=== PATIENT | female | born 1955 | race Caucasian/White ===

== ENCOUNTER 2017-04-12 09:41 | Emergency (ER) | payer BC ==
[2017-04-12] MEDS ORDERED: Sodium Chloride 0.9% 1,000 ML IV ONE (10:13)
[2017-04-12] MEDS ORDERED: Ondansetron 4 MG/2 ML SDV IVPUSH ONE (10:20)
[2017-04-12] MEDS ORDERED: Sodium Chloride 0.9% 10 ML Syringe FLUSH PRN (10:39)
[2017-04-12 10:59] LABS: CHLORIDE,CL 104 mmol/L (98-107); SODIUM,NA 140 mmol/L (136-145)
[2017-04-12] MEDS ORDERED: Iopamidol 612 MG/ML 100 ML Bottle IVPUSH ONE (11:25)
--- NOTE | 2017-04-12 11:38 | EDM.PDOC ---
ED HPI GENERAL MEDICAL PROBLEM - General Chief Complaint: Gastrointestinal Problem Stated Complaint: Nausea Time Seen by Provider: 04/12/17 09:42 Source of Information: Reports: Patient, RN, RN Notes Reviewed History Limitations: Reports: No Limitations - History of Present Illness INITIAL COMMENTS - FREE TEXT/NARRATIVE: Patient presents the emergency room at [facility] complaining of worsening nausea since her left hip surgery on April 06, 2017. The patient is taking narcotics for left hip pain but she states she has been tapering those off over the past couple of days. Her appetite has been poor. The patient states that she has had vomiting on and off for the past 4 days. The patient has right lower quadrant pain. The patient denies any diarrhea or blood in stool. The patient states she did have a normal bowel movement this morning. The patient states she feels somewhat weak. She has a history of chronic anemia. She admits she has not been taking her oral iron lately. Onset: Gradual Location: Reports: Abdomen Quality: Reports: Dull, Pressure Severity: Mild Improves with: Reports: Rest Worsens with: Reports: Other (palpation), Movement Associated Symptoms: Reports: Nausea/Vomiting Treatments RELOCATION COMMISSIONER: Reports: Other (see below) (none) Left Hip Pain Score (Numeric/FACES): 2 Right Lower Abdomen Pain Score (Numeric/FACES): 4 - Related Data Allergies Allergy/AdvReac Type Severity Reaction Status Date / Time lisinopril AdvReac Other Verified 04/12/17 11:49 Home Meds: Home Meds Albuterol [Ventolin HFA] 1 inh PO Q4H PRN 04/12/17 [History] Aspirin [Halfprin] 81 mg PO DAILY 04/12/17 [History] Canagliflozin [Invokana] 100 mg PO DAILY 04/12/17 [History] Carvedilol 12.5 mg PO BID 04/12/17 [History] Estradiol [Estrace 0.01% Vaginal Crm] 1 applic VAG ASDIRECTED 04/12/17 [History] Fluticasone Propionate [Flovent HFA 110 MCG] 1 inh PO BID 04/12/17 [History] Furosemide [Lasix] 40 mg PO DAILY PRN 04/12/17 [History] Insulin Aspart [Novolog Flexpen] 0 dose SQ ASDIRECTED 04/12/17 [History] Insulin Glargine,Hum.Rec.Anlog [Toujeo Solostar] 32 units SQ BEDTIME 04/12/17 [ History] Minoxidil [Rogaine] 0 dose TOP ASDIRECTED 04/12/17 [History] Montelukast [Singulair] 10 mg PO BEDTIME 04/12/17 [History] Naproxen Sodium 220 - 440 mg PO BID PRN 04/12/17 [History] Polyvinyl Alcohol [Liquitears] 0 drop EYEBOTH ASDIRECTED 04/12/17 [History] Spironolactone [Aldactone] 25 mg PO DAILY 04/12/17 [History] atorvaSTATin [Lipitor] 10 mg PO BEDTIME 04/12/17 [History] tiZANidine [Zanaflex] 4 mg PO TID PRN 04/12/17 [History] ED ROS GENERAL - Review of Systems Review Of Systems: See Below Constitutional: Reports: Weakness, Decreased Appetite. Denies: Fever, Chills Respiratory: Denies: Shortness of Breath, Cough Cardiovascular: Denies: Chest Pain, Palpitations GI/Abdominal: Reports: Abdominal Pain, Nausea, Vomiting. Denies: Black Stool, Bloody Stool, Diarrhea Skin: Reports: No Symptoms Neurological: Reports: No Symptoms. Denies: Dizziness, Headache ED EXAM, GI/ABD - Physical Exam Exam: See Below Exam Limited By: No Limitations General Appearance: Alert, No Apparent Distress Respiratory/Chest: No Respiratory Distress, Lungs Clear, Normal Breath Sounds Cardiovascular: Normal Peripheral Pulses, Regular Rate, Rhythm GI/Abdominal Exam: Soft, Tender (RLQ), Abnormal Bowel Sounds (Hypoactive) Neurological: Alert, Oriented Skin Exam: Warm, Dry, Intact, Normal Color, No Rash Course - Vital Signs Last Recorded V/S: Last Vital Signs Temp 35.8 C 04/12/17 10:00 Pulse 77 04/12/17 10:00 Resp 16 04/12/17 10:00 BP 160/69 H 04/12/17 10:00 Pulse Ox - Orders/Labs/Meds Orders: Active Orders 24 hr Category Date Time Status Abdomen Pelvis w Cont [CT] Stat Exams 04/12/17 10:40 Taken Sodium Chloride 0.9% [Saline Flush] Med 04/12/17 10:39 Active 10 ml FLUSH ASDIRECTED PRN Peripheral IV Insertion Adult [OM.PC] Routine Oth 04/12/17 10:39 Ordered Medication Orders Sodium Chloride (Saline Flush) 10 ml FLUSH ASDIRECTED PRN PRN Reason: Keep Vein Open Labs: Laboratory Tests 04/12/17 04/12/17 04/12/17 Range/Units 10:29 10:29 10:29 WBC 9.7 (4.0-10.0) x10^3/uL RBC 3.60 L (4.00-5.50) x10^6/uL Hgb 11.5 L (12.0-16.0) g/dL Hct 33.4 (33.0-47.0) % MCV 92.8 (78.0-93.0) fL MCH 31.9 (26.0-32.0) pg MCHC 34.4 (32.0-36.0) g/dL RDW Coeff of [place] 12.7 (10.0-15.0) % Plt Count 241 (130-400) x10^3/uL Add Manual Diff Yes Neutrophils % (Manual) 80 (50-80) % Band Neutrophils % 5 (0-6) % Lymphocytes % (Manual) 8 L (25-50) % Monocytes % (Manual) 5 (2-11) % Eosinophils % (Manual) 2 (0-4) % Hypersegmented Neuts Rare H Vacuolated Monocytes 1+ slight H Toxic Granulation 1+ slight H Platelet Estimate Adequate Giant Platelets Rare H Macrocytosis Rare Spherocytes Rare Ovalocytes Rare Helmet Cells Rare Sodium 140 (136-145) mmol/L Potassium 4.3 (3.5-5.1) mmol/L Chloride 104 (98-107) mmol/L Carbon Dioxide 25 (21-32) mmol/L BUN 17 (7-18) mg/dL Creatinine 0.8 (0.55-1.02) mg/dL Est Cr Clr Drug Dosing TNP Estimated GFR (MDRD) > 60 Glucose 162 H (74-106) mg/dL Lactic Acid 1.2 (0.4-2.0) mmol/L Calcium 8.5 (8.5-10.1) mg/dL Corrected Calcium 9.22 (8.5-10.1) mg/dL Total Bilirubin 1.6 H (0.2-1.0) mg/dL AST 41 H (15-37) U/L ALT 43 (14-59) U/L Alkaline Phosphatase 80 (46-116) U/L C-Reactive Protein 5.9 H (<=0.9) mg/dL Total Protein 6.7 (6.4-8.2) g/dL Albumin 3.1 L (3.4-5.0) g/dL Globulin 3.6 Albumin/Globulin Ratio 0.86 Amylase 24 L (25-115) U/L Lipase 117 (73-393) U/L Meds: Medications Generic Name Dose Route Start Last Admin Trade Name Freq PRN Reason Stop Dose Admin Sodium Chloride 10 ml 04/12/17 10:39 Saline Flush FLUSH ASDIRECTED PRN Keep Vein Open Discontinued Medications Generic Name Dose Route Start Last Admin Trade Name Freq PRN Reason Stop Dose Admin Sodium Chloride 1,000 mls @ 999 mls/hr 04/12/17 10:13 04/12/17 10:13 Normal Saline IV 04/12/17 11:13 999 mls/hr ONETIME ONE Administration Iopamidol 100 ml 04/12/17 11:25 04/12/17 11:27 Isovue-300 (61%) IVPUSH 04/12/17 11:26 100 ml ONETIME ONE Administration Ondansetron HCl 4 mg 04/12/17 10:20 04/12/17 10:28 Zofran IVPUSH 04/12/17 10:21 4 mg ONETIME ONE Administration - Radiology Interpretation Free Text/Narrative:: CT Abd/Pelvis: Discussed with Dr. Chuy Vu. No acute pathology or etiology for patients current symptoms. Has some gas/fluid in the left hip region, which is to be expected given 6 days out from surgery. See scanned report in EMR CT Results Date: 04/12/17 CT Results Time: 12:07 Departure - Departure Time of Disposition: 12:08 Disposition: Home, Self-Care 01 Condition: Good Clinical Impression: Nausea & vomiting Qualifiers: Vomiting type: unspecified Vomiting Intractability: non-intractable Qualified Code(s): R11.2 - Nausea with vomiting, unspecified Abdominal pain Qualifiers: Abdominal location: right lower quadrant Qualified Code(s): R10.31 - Right lower quadrant pain - Discharge Information Instructions: Nausea and Vomiting, Adult, Abdominal Pain, Adult, [id number] Referrals: Vidal,Yulissa Latasha, DO [Primary Care Provider] - Forms: ED Department Discharge Additional Instructions: 1. Stay well hydrated and rest 2. Continue with your same medications at home 3. Take nausea medication as needed 4. Labs and CT scan looked good, no emergency found 5. See your Primary as symptoms warrant 6. Call us with any questions/concerns - Problem List Review Problem List Initiated/Reviewed/Updated: Yes - My Orders Last 24 Hours: My Active Orders 04/12/17 10:39 Sodium Chloride 0.9% [Saline Flush] 10 ml FLUSH ASDIRECTED PRN Peripheral IV Insertion Adult [OM.PC] Routine 04/12/17 10:40 Abdomen Pelvis w Cont [CT] Stat - Assessment/Plan Last 24 Hours: My Active Orders 04/12/17 10:39 Sodium Chloride 0.9% [Saline Flush] 10 ml FLUSH ASDIRECTED PRN Peripheral IV Insertion Adult [OM.PC] Routine 04/12/17 10:40 Abdomen Pelvis w Cont [CT] Stat
== END 2017-04-12 12:25 | disposition home or self-care (01) ==
LOC: VM.ED 09:41
DX: R10.31 Right lower quadrant pain (principal); R11.2 Nausea with vomiting, unspecified; Z88.8 Allergy status to other drugs, medicaments and biological substances; Z79.82 Long term (current) use of aspirin; Z79.899 Other long term (current) drug therapy
CPT/HCPCS: 36415; 74177; 80053; 82150; 83605; 83690; 85025; 86140; 96361; 96374; 99284; J2405; J7030; Q9967

== ENCOUNTER 2019-08-22 06:37 | Day surgery (SDC) | payer BC ==
[2019-08-22] MEDS ORDERED: Lactated Ringers 1,000 ML IV SCH (07:00)
[2019-08-22] MEDS ORDERED: fentaNYL 100 MCG/2 ML SDV ONE (07:59)
[2019-08-22] MEDS ORDERED: Propofol 200 MG/20 ML SDV ONE ×2 (07:59→08:24)
--- NOTE | 2019-08-22 14:05 | OR ---
DATE OF SURGERY: 08/22/2019 REFERRING PROVIDER: Yulissa Drake DO PRE-OPERATIVE DIAGNOSES: 1. Screening colonoscopy. The patient's last colonoscopy was 10 years ago. There is no family history of colon cancer, but there is a family history of colon polyps in sister. 2. The patient does have history of hemorrhoids, which will bleed on occasion. She has been off her aspirin for 1 week. POST-OPERATIVE DIAGNOSES: 1. Five small polyps removed using cold forceps. a. 2 mm polyp at 60 cm. b. 2 mm x2 at 15 cm. c. 4 mm polyp at 10 cm. d. 3 mm rectal polyp. 2. Moderate left-sided diverticulosis. 3. Moderate hemorrhoids with some minimal inflammation. PROCEDURE: Colonoscopy with polypectomy x5 using cold forceps. SURGEON: Conner James M.D. ANESTHESIA: Monitored anesthesia care. BOWEL PREP: Good. Bri is a 63-year-old female who was brought to the endoscopy suite after discussing risks and benefits of the procedure. Informed consent was obtained for conscious sedation and colonoscopy with or without biopsy and/or polypectomy. We also discussed possibility of missed lesions. Pre-procedure exam was unremarkable. IV, oxygen, and monitors were placed. The patient was placed in the left lateral decubitus position. Sedation was administered and a digital rectal exam was performed and remarkable for some moderate external hemorrhoids, not acutely inflamed. Colonoscope was passed. The rectum slowly advanced all the way to the cecum. Cecum was viewed and photographed. The colonoscope was slowly withdrawn and the mucosa was closed observed in a direct circumferential manner. The ascending colon was unremarkable. The transverse colon was remarkable for 2 mm polyp at 60 cm, removed using cold forceps. The descending colon and sigmoid colon revealed moderate diverticulosis. Sigmoid colon did reveal 2 mm polyp x2 at 15 cm and 4 mm polyp at about 10 to 12 cm. These were all removed using cold forceps. Retroflexion was performed and rectal mucosa was remarkable for 3 mm rectal polyp, as well as moderate hemorrhoids with some minimal inflammation. Scope was removed. The patient tolerated the procedure well. The patient was monitored until that baseline status. Discharge instructions were reviewed and the patient was discharged in good condition. COMPLICATIONS: None. TOTAL TIME: 24 minutes. ESTIMATED BLOOD LOSS: 1 to 2 mL. RECOMMENDATIONS/FOLLOW-UP: We will await results of path report to determine ideal followup interval. I will have the patient hold her aspirin for about 3 days to limit any chance of bleeding from polypectomy sites. I would like to kindly thank Yulissa Drake for this referral. DMB: 08/22/2019 09:05:06 MODL: 08/22/2019 13:15:56 /[id number] MTDD
== END 2019-08-22 11:00 | disposition home or self-care (01) ==
LOC: VM.SDS 06:37
PROVIDERS: ATTEND Family Medicine
DX: Z12.11 Encounter for screening for malignant neoplasm of colon (principal); D12.3 Benign neoplasm of transverse colon; K62.1 Rectal polyp; K57.30 Diverticulosis of large intestine without perforation or abscess without bleeding; K64.4 Residual hemorrhoidal skin tags; I11.0 Hypertensive heart disease with heart failure; I50.9 Heart failure, unspecified; J45.909 Unspecified asthma, uncomplicated; K21.9 Gastro-esophageal reflux disease without esophagitis; E78.5 Hyperlipidemia, unspecified; E11.8 Type 2 diabetes mellitus with unspecified complications; E78.1 Pure hyperglyceridemia; M19.90 Unspecified osteoarthritis, unspecified site; J45.20 Mild intermittent asthma, uncomplicated; Z11.59 Encounter for screening for other viral diseases; Z98.890 Other specified postprocedural states; Z79.4 Long term (current) use of insulin; Z83.71 Family history of colonic polyps; Z79.899 Other long term (current) drug therapy; Z79.51 Long term (current) use of inhaled steroids; Z88.8 Allergy status to other drugs, medicaments and biological substances
CPT/HCPCS: 00812; 82962; J2704; J3010; J7120; U0002

== ENCOUNTER 2022-10-17 07:41 | Inpatient (IN) | payer MEDICARE, OTHER ==
[2022-10-17] MEDS ORDERED: Sodium Chloride 0.9% 10 ML Syringe FLUSH PRN (07:48)
[2022-10-17] MEDS ORDERED: Ondansetron 4 MG/2 ML SDV IVPUSH ONE (07:50)
[2022-10-17] MEDS ORDERED: Lactated Ringers 1,000 ML IV ONE ×2 (07:50→09:06)
[2022-10-17 07:56] LABS: HEMATOCRIT 44.8 % (33.0-47.0); HEMOGLOBIN 16.5 g/dL (12.0-16.0); MEAN CORPUSCULAR HEMOGLOBIN 32.2 pg (26.0-32.0); MEAN CORPUSCULAR HGB CONC 36.8 g/dL (32.0-36.0); MEAN CORPUSCULAR VOLUME 87.3 fL (78.0-93.0); PLATELET COUNT,PLT 225 x10^3/uL (130-400); RED BLOOD CELL COUNT 5.13 x10^6/uL (4.00-5.50)
[2022-10-17 08:07] LABS: WHITE BLOOD CELL COUNT,WBC 30.1 x10^3/uL (4.0-10.0)
[2022-10-17 08:15] LABS: BAND PERCENT MAN 5 % (0-6); BASOPHILS ABSOLUTE MAN 0.3 x10^3/uL (0.0-0.2); BASOPHILS PERCENT MAN 1 % (0-1); EOSINOPHILS ABSOLUTE MAN 1.2 x10^3/uL (0.0-0.5); EOSINOPHILS PERCENT MAN 4 % (0-4); GIANT PLATELETS RARE; LYMPHOCYTES ABSOLUTE MAN 3.6 x10^3/uL (1.0-4.8); LYMPHOCYTES PERCENT MAN 6 % (25-50); MONOCYTES ABSOLUTE MAN 0.3 x10^3/uL (0.0-0.8); MONOCYTES PERCENT MAN 1 % (2-11); NEUTROPHILS ABSOLUTE MAN 24.7 x10^3/uL (1.8-7.7); PLATELET COUNT ESTIMATE ADEQUATE; SEG NEUTROPHILS PERCENT MAN 77 % (50-80); VACUOLATED NEUTROPHILS 2+ MODERATE
[2022-10-17 08:16] LABS: ALANINE AMINOTRANSFERASE,ALT 38 U/L (14-59); ALBUMIN 4.3 g/dL (3.4-5.0); ALKALINE PHOSPHATASE 103 U/L (46-116); ASPARTATE AMNIOTRANSFERASE,AST 25 U/L (15-37); BILIRUBIN TOTAL 0.8 mg/dL (0.2-1.0); BLOOD UREA NITROGEN,BUN 26 mg/dL (7-18); CALCIUM 9.5 mg/dL (8.5-10.1); CARBON DIOXIDE,CO2 26 mmol/L (21-32); CHLORIDE,CL 101 mmol/L (98-107); CREATININE 1.2 mg/dL (0.55-1.02); GLUCOSE RANDOM 231 mg/dL (70-99); LIPASE 62 U/L (19-71); MAGNESIUM 1.9 mg/dL (1.8-2.4); POTASSIUM,K 3.4 mmol/L (3.5-5.1); PROTEIN TOTAL,TP 7.6 g/dL (6.4-8.2); SODIUM,NA 142 mmol/L (136-145); STOMATOCYTES RARE; TOXIC GRANULATION 1+ SLIGHT
[2022-10-17 08:19] LABS: ANION GAP 18.4 mmol/L (5-15); ESTIMATED GFR 49 mL/min (>=60)
[2022-10-17 08:23] LABS: INR 0.9 (2.0-3.5); PROTHROMBIN TIME 10.1 SEC (9.5-12.2); PTT,PARTIAL THROMBOPLSTIN TIME 23.4 SEC (23.6-33.6)
[2022-10-17 08:41] LABS: LACTIC ACID 4.8 mmol/L (0.4-2.0)
[2022-10-17] MEDS ORDERED: Iopamidol 612 MG/ML 100 ML Bottle IVPUSH ONE (08:45)
[2022-10-17] MEDS ORDERED: Prochlorperazine 10 MG/2 ML SDV IV ONE (09:06)
[2022-10-17] MEDS ORDERED: Piperacillin/Tazobactam 3.375 GM in Sodium Chloride 0.9% 100 ML IV ONE (10:13)
[2022-10-17] MEDS ORDERED: Ondansetron 4 MG Tab.DIS PO PRN (11:03)
[2022-10-17] MEDS ORDERED: NS + KCl 20mEq/L 1,000 ML IV SCH ×2 (11:15→17:15)
[2022-10-17 11:31] LABS: APPEARANCE,URINE CLEAR (CLEAR); BILIRUBIN,URINE NEGATIVE (NEGATIVE); COLOR,URINE YELLOW (YELLOW); GLUCOSE,URINE >=1000 mg/dL (NEGATIVE); KETONES,URINE TRACE mg/dL (NEGATIVE); LEUKOCYTE ESTERASE,URINE NEGATIVE (NEGATIVE); NITRITE,URINE NEGATIVE (NEGATIVE); OCCULT BLOOD,URINE NEGATIVE (NEGATIVE); PROTEIN,URINE NEGATIVE (NEGATIVE); UROBILINOGEN,URINE 0.2 EU/dL (0.2)
[2022-10-17] MEDS ORDERED: Hypromellose 0.3% Ophth Soln 15 ML Bottle EYEBOTH PRN (11:31)
[2022-10-17] MEDS ORDERED: Albuterol HFA 18 Gm Inhaler INH PRN (11:31)
[2022-10-17] MEDS ORDERED: Ketotifen 0.025% Ophth Soln 5 ML Bottle EYEBOTH PRN (11:31)
[2022-10-17] MEDS ORDERED: Loratadine 10 MG Tab PO PRN (11:31)
[2022-10-17] MEDS: Pantoprazole 40 MG Vial IVPUSH SCH ×2 (11:36→22:37)
[2022-10-17 11:37] LABS: AMPHETAMINES SCREEN, URINE NEGATIVE (NEGATIVE); BARBITURATE SCREEN,URINE NEGATIVE (NEGATIVE); BENZODIAZEPINES SCREEN,URINE NEGATIVE (NEGATIVE); BUPRENORPHINE SCREEN,URINE NEGATIVE (NEGATIVE); COCAINE METABOLITES,URINE NEGATIVE (NEGATIVE); METHADONE SCREEN, URINE NEGATIVE (NEGATIVE); METHAMPHETAMINE SCREEN, URINE NEGATIVE (NEGATIVE); OXYCODONE SCREEN,URINE NEGATIVE (NEGATIVE); PCP SCREEN,URINE NEGATIVE (NEGATIVE); THC SCREEN,URINE 50 NG/ML POSITIVE (NEGATIVE)
[2022-10-17] MEDS ORDERED: INSULIN ASPART 100 UNIT/ML SQ SCH (11:45)
[2022-10-17 12:06] LABS: C-REACTIVE PROTEIN 0.19 mg/dL (<=0.30)
[2022-10-17] MEDS ORDERED: Insulin Lispro 100 Units/ML 3 ML Vial SUBCUT SCH ×2 (13:00→18:00)
[2022-10-17] MEDS: Piperacillin/Tazobactam 3.375 GM in Sodium Chloride 0.9% 100 ML IV SCH (18:24)
[2022-10-17] MEDS ORDERED: Prochlorperazine 10 MG/2 ML SDV IVPUSH PRN (20:06)
[2022-10-17] MEDS ORDERED: Lisinopril 20 MG Tab PO SCH (21:00)
[2022-10-17] MEDS ORDERED: Montelukast 10 MG Tab PO SCH (21:00)
[2022-10-17] MEDS ORDERED: atorvaSTATin 10 MG Tab PO SCH (21:00)
[2022-10-17] MEDS ORDERED: Insulin Glarg,Human.Rec.Analog 100 Unit/ML 10 ML Vial SUBCUT SCH (21:00)
[2022-10-18] MEDS: Piperacillin/Tazobactam 3.375 GM in Sodium Chloride 0.9% 100 ML IV SCH (02:13)
[2022-10-18 06:42] LABS: BASOPHILS PERCENT AUTO 0.2 % (0.2-1.2); EOSINOPHILS PERCENT AUTO 0.2 % (0.0-4.0); HEMATOCRIT 34.6 % (33.0-47.0); HEMOGLOBIN 12.7 g/dL (12.0-16.0); IMMATURE GRAN ABSOLUTE AUTO 0.04 x10^3/uL (0.00-0.07); LYMPHOCYTES ABSOLUTE AUTO 1.7 x10^3/uL (1.0-4.8); MEAN CORPUSCULAR HEMOGLOBIN 32.5 pg (26.0-32.0); MEAN CORPUSCULAR HGB CONC 36.7 g/dL (32.0-36.0); MEAN CORPUSCULAR VOLUME 88.5 fL (78.0-93.0); MONOCYTES ABSOLUTE AUTO 1.2 x10^3/uL (0.0-0.8); MONOCYTES PERCENT AUTO 7.5 % (2.0-11.0); NEUTROPHILS ABSOLUTE AUTO 13.5 x10^3/uL (1.8-7.7); NEUTROPHILS PERCENT AUTO 81.9 % (50.0-80.0); PLATELET COUNT,PLT 149 x10^3/uL (130-400); RED BLOOD CELL COUNT 3.91 x10^6/uL (4.00-5.50); WHITE BLOOD CELL COUNT,WBC 16.5 x10^3/uL (4.0-10.0)
[2022-10-18 07:24] LABS: A/G RATIO 1.24; ALBUMIN 3.1 g/dL (3.4-5.0); ANION GAP 13.5 mmol/L (5-15); BILIRUBIN TOTAL 1.6 mg/dL (0.2-1.0); CALCIUM 7.8 mg/dL (8.5-10.1); EST CRCL DRUG DOSING (CG) 52.36 mL/min; POTASSIUM,K 3.5 mmol/L (3.5-5.1); PROTEIN TOTAL,TP 5.6 g/dL (6.4-8.2)
[2022-10-18] MEDS ORDERED: Insulin Lispro 100 Units/ML 3 ML Vial SUBCUT SCH ×2 (08:00→09:00)
[2022-10-18] MEDS ORDERED: Furosemide 20 MG Tab PO PRN (08:37)
[2022-10-18] MEDS ORDERED: Miconazole 2% Vaginal Crm 45 GM Tube TOP PRN (08:38)
[2022-10-18] MEDS ORDERED: Potassium Chloride 10 MEQ Tab.ER PO ONE (09:00)
[2022-10-18] MEDS ORDERED: Empagliflozin 25 MG Tab PO SCH (09:00)
[2022-10-18] MEDS ORDERED: Furosemide 20 MG Tab PO SCH (09:00)
[2022-10-18] MEDS ORDERED: Metoprolol Succinate 50 MG Tab.ER PO SCH (09:00)
[2022-10-18] MEDS ORDERED: Fluticasone Propionate Nasal Spray 9.9 ML BOTTLE NAS SCH (09:00)
[2022-10-18] MEDS ORDERED: Spironolactone 25 MG Tab PO SCH (09:00)
[2022-10-18] MEDS ORDERED: Amoxicillin/Clavulanate K 875-125 MG Tab PO ONE (09:15)
== END 2022-10-18 10:00 | disposition home or self-care (01) | DRG 378 ==
LOC: VM.ED 07:41 → VM.MS 10:15
PROVIDERS: ADMIT Family Medicine; ATTEND Internal Medicine
DX: K92.0 Hematemesis (principal); R11.2 Nausea with vomiting, unspecified; E87.20 Acidosis, unspecified; I50.22 Chronic systolic (congestive) heart failure; I42.8 Other cardiomyopathies; E86.0 Dehydration; E11.9 Type 2 diabetes mellitus without complications; I11.0 Hypertensive heart disease with heart failure; J45.909 Unspecified asthma, uncomplicated; K21.9 Gastro-esophageal reflux disease without esophagitis; M19.90 Unspecified osteoarthritis, unspecified site; Z96.641 Presence of right artificial hip joint; E78.1 Pure hyperglyceridemia; D72.829 Elevated white blood cell count, unspecified; I50.9 Heart failure, unspecified; I25.10 Atherosclerotic heart disease of native coronary artery without angina pectoris; Z90.710 Acquired absence of both cervix and uterus; Z88.8 Allergy status to other drugs, medicaments and biological substances; Z79.4 Long term (current) use of insulin; Z79.82 Long term (current) use of aspirin; Z79.899 Other long term (current) drug therapy; Z95.0 Presence of cardiac pacemaker; Z90.49 Acquired absence of other specified parts of digestive tract; E78.00 Pure hypercholesterolemia, unspecified
CPT/HCPCS: 36415; 74177; 80053; 83605; 83690; 83735; 83880; 84145; 85025; 85610; 85730; 86140; 96361; 96374; 96375; 99284; 99285; J0780; J2405; J7120 ×2; Q9967; 80305-QW; 81003; 82947; 87040; A9270-GY; C9113; J1815-GY; J2543; J3480; J3490

== ENCOUNTER → 2024-10-31 | Day surgery (SDC) | payer MEDICARE, OTHER ==
[~2024-10-31] MED LIST: Propofol 200 MG/20 ML SDV ONE; fentaNYL 100 MCG/2 ML SDV ONE
[2024-10-31] MEDS: Lactated Ringers 1,000 ML IV SCH (07:23)
== END ==
LOC: VM.SDS 07:14
PROVIDERS: ATTEND Family Medicine
DX: D12.2 Benign neoplasm of ascending colon (principal); D12.5 Benign neoplasm of sigmoid colon; K57.30 Diverticulosis of large intestine without perforation or abscess without bleeding; K64.9 Unspecified hemorrhoids; I11.0 Hypertensive heart disease with heart failure; I50.42 Chronic combined systolic (congestive) and diastolic (congestive) heart failure; E11.9 Type 2 diabetes mellitus without complications; I25.10 Atherosclerotic heart disease of native coronary artery without angina pectoris; Z79.4 Long term (current) use of insulin; Z80.0 Family history of malignant neoplasm of digestive organs; Z79.82 Long term (current) use of aspirin; Z86.0100 Personal history of colon polyps, unspecified; Z79.899 Other long term (current) drug therapy
CPT/HCPCS: 00811; 82947; 88305; J2704; J3010; J7120